=== PATIENT | male | born 1950 | race Caucasian/White ===

== ENCOUNTER 2019-12-12 09:24 | Inpatient (IN) | payer MEDICARE, OTHER ==
[~2019-12-12] VITALS: Ht 175.3 cm; Wt 110.4 kg
[2019-12-12 11:43] LABS: BASOPHILS % (AUTO) 0.4 % (0.0-5.0); HEMATOCRIT 47.6 % (42-54); LYMPHOCYTES % (AUTO) 13.2 % (21.0-51.0); MEAN CORPUSCULAR HEMOGLOBIN 28.7 pg (27.0-33.0); MEAN CORPUSCULAR HGB CONC 33.2 g/dL (32.0-36.0); MEAN CORPUSCULAR VOLUME 86.4 fL (79-99); MONOCYTES % (AUTO) 8.9 % (3.0-13.0); NEUTROPHILS % (AUTO) 76.2 % (40.0-77.0); PLATELET COUNT (AUTO) 236 K/uL (130-400); RED BLOOD CELL COUNT(AUTO) 5.51 MIL/uL (4.50-6.20); RED CELL DISTRIBUTION WIDTH 13.2 % (11.0-15.5); WHITE BLOOD COUNT (AUTO) 10.8 K/uL (4.8-10.8)
[2019-12-12 12:07] LABS: CREATININE 0.9 mg/dL (0.5-1.5); POTASSIUM 4.1 mmol/L (3.5-5.1)
[2019-12-12 12:11] LABS: ALBUMIN 3.1 g/dL (3.5-5.0); CRP QUANTITATIVE 142.7 mg/L (0.00-9.0); TOTAL PROTEIN, SERUM 7.4 g/dL (6.0-8.3)
[2019-12-12 12:53] LABS: ERYTHROCYTE SEDIMENTATION RATE 28 MM/HR (0-20)
[2019-12-12] MEDS ORDERED: ZOSYN 3.375GM+NS 50ML 50 ML IV ONE (13:31)
[2019-12-12] MEDS ORDERED: ACETAMINOPHEN-CODEINE 300/30MG TAB PO PRN (14:30)
[2019-12-12] MEDS ORDERED: VANCOMYCIN PROTOCOL PER PHARMACY IV SCH (14:30)
[2019-12-12] MEDS: CEFEPIME HCL 2 GM VIAL IVP SCH (14:30)
[2019-12-12] MEDS ORDERED: MORPHINE SULFATE 2 MG/ML 1ML SYG IVP PRN (14:30)
[2019-12-12] MEDS ORDERED: COMPOUND IV REFRIGERATED 1 EACH IVSOLN MISC PRN (15:30)
[2019-12-12] MEDS ORDERED: VANCOMYCIN 2 GM in SODIUM CHLORIDE 0.9% 500ML 500 ML IV ONE (16:00)
[2019-12-12] MEDS: INSULIN HUMULIN R 100 UNIT/ML 3ML SQ SCH ×2 (16:30→21:00)
[2019-12-12 16:48] VITALS: BP 137/73
[2019-12-12 17:38] LABS: HEMOGLOBIN A1C 6.7 % (4.0-6.0)
[2019-12-12 18:00] LABS: THYROID STIMULATING HORMONE 1.59 uIU/mL (0.36-3.74)
[2019-12-12] MEDS ORDERED: GLIP1TAB6 PO (18:32)
[2019-12-12] MEDS ORDERED: LISI-613 PO (18:32)
[2019-12-12 21:44] VITALS: BP 151/68
[2019-12-13 00:18] VITALS: BP 141/73
[2019-12-13] MEDS: CEFEPIME HCL 2 GM VIAL IVP SCH ×2 (02:42→13:41)
[2019-12-13 04:39] VITALS: BP 138/67
[2019-12-13 06:00] LABS: BASOPHILS % (AUTO) 0.4 % (0.0-5.0); EOSINOPHILS % (AUTO) 1.1 % (0.0-8.0); LYMPHOCYTES % (AUTO) 17.8 % (21.0-51.0); MEAN CORPUSCULAR HEMOGLOBIN 28.1 pg (27.0-33.0); MEAN CORPUSCULAR HGB CONC 32.8 g/dL (32.0-36.0); MEAN CORPUSCULAR VOLUME 85.7 fL (79-99); MONOCYTES % (AUTO) 10.2 % (3.0-13.0); NEUTROPHILS % (AUTO) 70.1 % (40.0-77.0); PLATELET COUNT (AUTO) 240 K/uL (130-400); RED BLOOD CELL COUNT(AUTO) 5.37 MIL/uL (4.50-6.20); RED CELL DISTRIBUTION WIDTH 13.2 % (11.0-15.5); WHITE BLOOD COUNT (AUTO) 11.4 K/uL (4.8-10.8)
[2019-12-13] MEDS: VANCOMYCIN 1.25 GM in SODIUM CHLORIDE 0.9% 250 ML IV SCH ×2 (06:05→16:54)
[2019-12-13] MEDS: INSULIN HUMULIN R 100 UNIT/ML 3ML SQ SCH ×4 (06:07→20:59)
[2019-12-13 06:35] LABS: CREATININE 0.9 mg/dL (0.5-1.5); POTASSIUM 4.3 mmol/L (3.5-5.1)
[2019-12-13 08:00] VITALS: BP 147/69
[2019-12-13] MEDS: LISINOPRIL 20 MG TABLET PO SCH (09:15)
[2019-12-13] MEDS: ENOXAPARIN SODIUM 40 MG/0.4 ML SYRINGE SQ SCH (09:15)
[2019-12-13 11:00] VITALS: BP 137/69
[2019-12-13] MEDS ORDERED: DiphenhydrAMINE HCL 50 MG/ML VIAL IVP PRN (13:30)
--- NOTE | 2019-12-13 13:44 | NUR ---
DR. CRABTREE AND DR. BINGHAM IN TO SEE PT. BRO KELLY CHANGED DRESSING TO RT. FOOT AND ENTERED ORDERS. DR. BINGHAM ENTERED LABS.
[2019-12-13 16:00] VITALS: BP 136/64
[2019-12-13] MEDS: DIPH,PERTUSS(ACELL),TET VAC/PF 0.5 ML VIAL IM SCH (16:55)
[2019-12-13] MEDS: SODIUM CHLORIDE 0.9% 1000ML 1,000 ML IV SCH ×2 (16:55→23:26)
--- NOTE | 2019-12-13 17:32 | NUR ---
D/C PLAN CM spoke to pt regarding d/c planning. Pt is ind. and lives with spouse. States spouse can assist in care if needed. Pt states if dressing changes required, he can perform himself or have spouse assist. Plan to home. No needs verbalized or identified. Plan to home. CM to f/u. Addendum: 12/13/19 at 1734 by ROSEMARY KAYE CM Amended: Links added.
--- NOTE | 2019-12-13 18:30 | NUR ---
TO RAD DEPT. NOW FOR MRI OF RT. FOOT.
--- NOTE | 2019-12-13 18:42 | NUR ---
HAS BEEN SCHEDULED FOR ANGIOGRAPHY AND INTERVENTION NEEDED.CONSENT PENDING.
[2019-12-13] MEDS ORDERED: ATORVASTATIN CALCIUM 20 MG TABLET PO SCH (21:00)
--- NOTE | 2019-12-13 21:00 | NUR ---
MEDS PATIENT STATES HE ALREADY TOOK HIS PILL BLOOD SUGAR FROM HIS OWN SUPPLY. NOTED THAT GLIPIZIDE/METFORMIN IS ON HOLD ON RECONCILIATION LIST PER MD. INFORMED PATIENT OF THIS AND INSTRUCTED TO NOT TAKE HIS OWN SUPPLY MEDICATIONS UNLESS CHECKING IN WITH NURSING STAFF. HE ACKNOWLEDGED UNDERSTANDING.
[2019-12-13 22:09] VITALS: BP 157/71
[2019-12-14] VITALS (12 sets, daily range): BP systolic 129–173; BP diastolic 63–85
[2019-12-14] MEDS: CEFEPIME HCL 2 GM VIAL IVP SCH ×2 (02:27→16:17)
[2019-12-14 05:47] LABS: HEMATOCRIT 44.8 % (42-54); MEAN CORPUSCULAR HEMOGLOBIN 28.1 pg (27.0-33.0); MEAN CORPUSCULAR HGB CONC 32.6 g/dL (32.0-36.0); MEAN CORPUSCULAR VOLUME 86.2 fL (79-99); RED BLOOD CELL COUNT(AUTO) 5.2 MIL/uL (4.50-6.20); RED CELL DISTRIBUTION WIDTH 13.2 % (11.0-15.5); WHITE BLOOD COUNT (AUTO) 10.3 K/uL (4.8-10.8)
[2019-12-14 06:03] LABS: CREATININE 0.9 mg/dL (0.5-1.5); POTASSIUM 4.1 mmol/L (3.5-5.1)
[2019-12-14 06:05] LABS: INR 0.99 (0.85-1.15); PARTIAL THROMBOPLASTIN TIME 33.5 SEC (26.3-35.5); PROTHROMBIN TIME 10.7 SEC (9.6-11.6)
[2019-12-14] MEDS: VANCOMYCIN 1.25 GM in SODIUM CHLORIDE 0.9% 250 ML IV SCH ×3 (06:22→21:52)
[2019-12-14] MEDS: INSULIN HUMULIN R 100 UNIT/ML 3ML SQ SCH ×4 (06:25→21:00)
[2019-12-14] MEDS: LISINOPRIL 20 MG TABLET PO SCH (08:58)
[2019-12-14] MEDS: ENOXAPARIN SODIUM 40 MG/0.4 ML SYRINGE SQ SCH (08:59)
[2019-12-14] MEDS: DIPH,PERTUSS(ACELL),TET VAC/PF 0.5 ML VIAL IM SCH (09:02)
[2019-12-14] MEDS ORDERED: MIDAZOLAM HCL 1 MG/ML 2ML VIAL ONE (10:59)
[2019-12-14] MEDS ORDERED: LIDOCAINE HCL 2% 20ML ONE (10:59)
[2019-12-14] MEDS ORDERED: IODIXANOL 320 MG/ML 100 ML VIAL ONE (10:59)
[2019-12-14] MEDS ORDERED: FENTANYL CITRATE PF 50 MCG/1 ML 2ML VIAL ONE (10:59)
[2019-12-14] MEDS ORDERED: NITROGLYCERIN 2 MG/VIAL VIAL IV ONE (10:59)
[2019-12-14] MEDS ORDERED: HEPARIN SODIUM 1000UNIT/ML 10ML VIAL ONE (10:59)
[2019-12-14] MEDS ORDERED: VANCOMYCIN 2 GM in SODIUM CHLORIDE 0.9% 500ML 500 ML IV SCH (12:00)
[2019-12-14] MEDS ORDERED: TICAGRELOR 90 MG TABLET ONE (13:23)
[2019-12-14] MEDS ORDERED: ASPIRIN 325MG EC TAB 325 MG TABLET.DR PO ONE (13:24)
[2019-12-14] MEDS ORDERED: SODIUM CHLORIDE 0.9% 1000ML 1,000 ML IV SCH (14:04)
--- NOTE | 2019-12-14 14:15 | NUR ---
S/P ANGIOGRAPHY LEFT FEMORAL APPROACH, DRESSING DRY INTACT, NO BLEEDING, NO SWELLING, SLIGHTLY TENDER. NO SHEAT PRESENT, AAOX3.
--- NOTE | 2019-12-14 15:00 | NUR ---
bp 160's-170s orders entered.
[2019-12-14] MEDS: SODIUM CHLORIDE 0.9% 1000ML 1,000 ML IV SCH ×2 (19:26→20:08)
[2019-12-14] MEDS ORDERED: LISINOPRIL 20 MG TABLET PO SCH (21:10)
[2019-12-14] MEDS: ATORVASTATIN CALCIUM 40 MG TABLET PO SCH (21:52)
--- NOTE | 2019-12-14 22:00 | NUR ---
VANCOMYCIN UNABLE TO GIVE 1800 SCHEDULED DOSE DUE TO LOADING DOSE WAS GIVEN LATE, SECONDARY TO PATIENT IN PROCEDURE. LOADING DOSE IS STILL RUNNING AT THIS TIME.
[2019-12-14] MEDS ORDERED: TICAGRELOR 90 MG TABLET PO SCH (23:00)
[2019-12-15] VITALS (26 sets, daily range): BP systolic 131–195; BP diastolic 52–80
[2019-12-15] MEDS: CEFEPIME HCL 2 GM VIAL IVP SCH ×2 (02:31→13:57)
[2019-12-15] MEDS: SODIUM CHLORIDE 0.9% 1000ML 1,000 ML IV SCH ×2 (04:37→15:28)
[2019-12-15] MEDS ORDERED: PHARMACY COMMUNICATION MISC SCH (04:45)
[2019-12-15] MEDS: VANCOMYCIN 1.25 GM in SODIUM CHLORIDE 0.9% 250 ML IV SCH (05:10)
[2019-12-15 05:40] LABS: HEMATOCRIT 41.7 % (42-54); MEAN CORPUSCULAR HEMOGLOBIN 28.6 pg (27.0-33.0); MEAN CORPUSCULAR HGB CONC 33.3 g/dL (32.0-36.0); MEAN CORPUSCULAR VOLUME 85.8 fL (79-99); RED BLOOD CELL COUNT(AUTO) 4.86 MIL/uL (4.50-6.20); RED CELL DISTRIBUTION WIDTH 12.9 % (11.0-15.5); WHITE BLOOD COUNT (AUTO) 8.3 K/uL (4.8-10.8)
[2019-12-15] MEDS: INSULIN HUMULIN R 100 UNIT/ML 3ML SQ SCH ×4 (05:50→20:28)
[2019-12-15 06:00] LABS: CREATININE 0.8 mg/dL (0.5-1.5); POTASSIUM 4.2 mmol/L (3.5-5.1)
[2019-12-15] MEDS: ASPIRIN 81MG TAB.CHEW PO SCH (09:00)
[2019-12-15] MEDS: LISINOPRIL 20 MG TABLET PO SCH (09:00)
[2019-12-15] MEDS: CLOPIDOGREL BISULFATE 75 MG TAB PO SCH (09:00)
[2019-12-15] MEDS: DIPH,PERTUSS(ACELL),TET VAC/PF 0.5 ML VIAL IM SCH (11:15)
--- NOTE | 2019-12-15 14:21 | NUR ---
CONSULT: SHIREEN PONCE PANTOGRAPH WATCHER MADE AWARE OF NPO STATUS 12/15/19 AT 0:700, ONE EAST TIMORESE TOAST AND VERY LITTLE OATMEAL. OK TO PROCEED WITH SURGERY.
[2019-12-15] MEDS ORDERED: BUPIVACAINE/PF 0.5% 30ML VIAL ONE (15:00)
[2019-12-15] MEDS ORDERED: LIDOCAINE HCL 1% 20 ML VIAL ONE (15:00)
[2019-12-15] MEDS ORDERED: PROPOFOL 10 MG/ML 20ML VIAL IV ONE (15:07)
[2019-12-15] MEDS ORDERED: ONDANSETRON HCL 4 MG/2 ML VIAL ONE ×2 (15:07→18:01)
[2019-12-15] MEDS ORDERED: MIDAZOLAM HCL 1 MG/ML 2ML VIAL ONE (15:07)
[2019-12-15] MEDS ORDERED: LIDOCAINE PF 2% 5ML ABBOJECT ONE (15:07)
[2019-12-15] MEDS ORDERED: DEXAMETHASONE SOD PHOSPHATE 10MG/ML 1ML VIAL ONE (15:07)
[2019-12-15] MEDS ORDERED: FENTANYL CITRATE PF 50 MCG/1 ML 2ML VIAL ONE (15:09)
[2019-12-15] MEDS: ATORVASTATIN CALCIUM 40 MG TABLET PO SCH (20:22)
[2019-12-15] MEDS: HYDROMORPHONE HCL 0.5 MG/0.5 ML ML IVP PRN ×2 (20:24→23:28)
[2019-12-15] MEDS: VANCOMYCIN 1.5 GM in SODIUM CHLORIDE 0.9% 250 ML IV SCH (22:19)
[2019-12-15] MEDS ORDERED: HYDRALAZINE HCL 20 MG/ML VIAL ONE (23:07)
[2019-12-15] MEDS ORDERED: HYDRALAZINE HCL 20 MG/ML VIAL IV PRN (23:15)
[2019-12-16] MEDS: CEFEPIME HCL 2 GM VIAL IVP SCH ×2 (01:28→15:22)
[2019-12-16] MEDS: SODIUM CHLORIDE 0.9% 1000ML 1,000 ML IV SCH ×3 (01:28→21:26)
[2019-12-16 03:52] VITALS: BP 142/46
[2019-12-16] MEDS: INSULIN HUMULIN R 100 UNIT/ML 3ML SQ SCH ×4 (05:32→21:00)
--- NOTE | 2019-12-16 08:00 | NUR ---
PT AAOX 3 REVIEW PLAN OF CARE, DR CRABTREE CHANGED HIS RTFOOT DRSG EARLY IN AM. RT FOOT DRSG DRY AND CLEAN . DENIES ANY PAIN . AND CALL LIGHT IN REACH. .
[2019-12-16] MEDS: ASPIRIN 81MG TAB.CHEW PO SCH (09:01)
[2019-12-16] MEDS: LISINOPRIL 20 MG TABLET PO SCH (09:01)
[2019-12-16] MEDS: CLOPIDOGREL BISULFATE 75 MG TAB PO SCH (09:02)
[2019-12-16] MEDS: VANCOMYCIN 1.5 GM in SODIUM CHLORIDE 0.9% 250 ML IV SCH ×2 (09:03→23:11)
[2019-12-16 10:00] VITALS: BP 170/78
[2019-12-16] MEDS: DIPH,PERTUSS(ACELL),TET VAC/PF 0.5 ML VIAL IM SCH (11:15)
[2019-12-16 12:21] VITALS: BP 162/72
--- NOTE | 2019-12-16 16:53 | NUR ---
DISPO_ HOME WITH [facility], ACCEPTANCE PENDING, WILL AMEND DISPO IF ANOTHER AGENCY IS CHOSEN Addendum: 12/16/19 at 1654 by DONATO GALVAN RN CM Amended: Links added.
[2019-12-16 17:27] VITALS: BP 139/70
[2019-12-16 20:00] VITALS: BP 145/58
[2019-12-16] MEDS: ATORVASTATIN CALCIUM 40 MG TABLET PO SCH (22:59)
[2019-12-16 23:49] VITALS: BP 124/63
[2019-12-17] MEDS: CEFEPIME HCL 2 GM VIAL IVP SCH ×2 (02:24→14:30)
[2019-12-17 03:55] VITALS: BP 125/50
[2019-12-17 04:55] LABS: BASOPHILS % (AUTO) 0.3 % (0.0-5.0); EOSINOPHILS % (AUTO) 1.1 % (0.0-8.0); LYMPHOCYTES % (AUTO) 14.7 % (21.0-51.0); MEAN CORPUSCULAR HEMOGLOBIN 28.8 pg (27.0-33.0); MEAN CORPUSCULAR HGB CONC 33.5 g/dL (32.0-36.0); MEAN CORPUSCULAR VOLUME 85.8 fL (79-99); MONOCYTES % (AUTO) 8.6 % (3.0-13.0); PLATELET COUNT (AUTO) 223 K/uL (130-400); RED BLOOD CELL COUNT(AUTO) 4.66 MIL/uL (4.50-6.20); RED CELL DISTRIBUTION WIDTH 13.2 % (11.0-15.5); WHITE BLOOD COUNT (AUTO) 8.8 K/uL (4.8-10.8)
[2019-12-17 05:05] LABS: CREATININE 0.7 mg/dL (0.5-1.5); POTASSIUM 4.2 mmol/L (3.5-5.1)
[2019-12-17] MEDS: INSULIN HUMULIN R 100 UNIT/ML 3ML SQ SCH ×2 (06:05→11:30)
--- NOTE | 2019-12-17 06:23 | NUR ---
DR CUEVAS WENT TO PT'S ROOM AND CHANGED PT'S RT. BIG TOE DRESSING.
[2019-12-17] MEDS: SODIUM CHLORIDE 0.9% 1000ML 1,000 ML IV SCH (06:35)
--- NOTE | 2019-12-17 06:49 | NUR ---
REPORT GIVEN TO ALECIA LEE RN.
[2019-12-17] MEDS ORDERED: GLIPIZIDE XL 10MG TAB PO SCH (08:00)
[2019-12-17] MEDS ORDERED: METFORMIN HCL 500 MG TAB.SR.24H PO SCH (08:00)
--- NOTE | 2019-12-17 08:00 | NUR ---
PT AAOX 3REVIEW CALL LGHT, DENIES ANY PAIN. RT FOOT DRSG DRY AND CLEAN, DR REARDON WAS HERE IN EARLY AM .WITH A RT FOOT DRSG CHANGED FALL RISK REVIEW
[2019-12-17 08:07] VITALS: BP 163/75
[2019-12-17] MEDS: ASPIRIN 81MG TAB.CHEW PO SCH (08:13)
[2019-12-17] MEDS: LISINOPRIL 20 MG TABLET PO SCH (08:13)
[2019-12-17] MEDS: CLOPIDOGREL BISULFATE 75 MG TAB PO SCH (08:15)
[2019-12-17] MEDS: VANCOMYCIN 1.5 GM in SODIUM CHLORIDE 0.9% 250 ML IV SCH (08:16)
--- NOTE | 2019-12-17 10:11 | NUR ---
ACCEPTED AT [facility], FOR DC TODAY Addendum: 12/17/19 at 1011 by DONATO GALVAN RN CM Amended: Links added.
[2019-12-17 10:49] VITALS: BP 143/63
[2019-12-17] MEDS ORDERED: ATOR40TA69 PO (11:07)
[2019-12-17] MEDS ORDERED: GLIP10TA PO (11:07)
[2019-12-17] MEDS ORDERED: CLOP75TA14 PO (11:07)
[2019-12-17] MEDS ORDERED: METF500T3 PO (11:07)
[2019-12-17] MEDS ORDERED: ASPI-1005 PO (11:07)
[2019-12-17] MEDS ORDERED: PANT40TA PO (11:07)
[2019-12-17] MEDS ORDERED: LISI-613 PO (11:07)
[2019-12-17] MEDS: DIPH,PERTUSS(ACELL),TET VAC/PF 0.5 ML VIAL IM SCH (11:15)
--- NOTE | 2019-12-17 13:30 | NUR ---
HOME HEALTH , STAFF NURSE , CALLED FOR REPORT OF MR. APONET. DISCHARGE RT FOOT .CARE , REVIEW QUESTIONS .
--- NOTE | 2019-12-17 15:15 | NUR ---
DISCHARGE SUMMARY REVIEW WITH PT. STATUS, OF DISCHARGE CARE, REVIEW FOLLOWUP WITH DR. CRABTREE ,AND DR LLOYD , AND PRIVATE DR. PT DISCHARGE , WITH EDUC ATION OF DIABETIC AND CARE TO HIS RT FOOT. DRSG DRY AND CLEAN , DR REARDON CHANGED HIS DRSG THIS AM. AMPUTATION SITE , TO HIS RT GREAT TOE. PICTURES TAKEN BEFORE THE AMPUTATIONS PT . HAS A COVER SHOE FOR RT FOOT SUPPORT DENIES ANY PAIN, REVIEW DR. CRABTREE ORDERS . SL TO HIS LT HAND DC, WITH NO REDNESS NOTED .SITE CARE SM DRSG APPLICATION ON . REVIEW ANTIBOTICS . TO COMPLETE AND SIDE EFFECTS , . AGREEABLE TO INFORMATION ...
== END 2019-12-17 15:22 | disposition home health service (06) | DRG 271 ==
LOC: EDH 09:24 → EDHIP 14:23 → 3CH 16:45
PROVIDERS: ADMIT Internal Medicine; ATTEND Internal Medicine
PROC: 0LBV0ZZ Excision of Right Foot Tendon, Open Approach (ICD-10-PCS; 2019-12-12)
PROC: 0HBRXZZ Excision of Toe Nail, External Approach (ICD-10-PCS; 2019-12-12)
PROC: 0HBRXZZ Excision of Toe Nail, External Approach (ICD-10-PCS; 2019-12-12)
PROC: 0HBRXZZ Excision of Toe Nail, External Approach (ICD-10-PCS; 2019-12-12)
PROC: 0HBRXZZ Excision of Toe Nail, External Approach (ICD-10-PCS; 2019-12-12)
PROC: 0HBRXZZ Excision of Toe Nail, External Approach (ICD-10-PCS; 2019-12-12)
PROC: 0HBRXZZ Excision of Toe Nail, External Approach (ICD-10-PCS; 2019-12-12)
PROC: 0HBRXZZ Excision of Toe Nail, External Approach (ICD-10-PCS; 2019-12-12)
PROC: 0HBRXZZ Excision of Toe Nail, External Approach (ICD-10-PCS; 2019-12-12)
PROC: 0HBRXZZ Excision of Toe Nail, External Approach (ICD-10-PCS; 2019-12-12)
PROC: 0HBRXZZ Excision of Toe Nail, External Approach (ICD-10-PCS; 2019-12-12)
PROC: 04CR3ZZ Extirpation of Matter from Right Posterior Tibial Artery, Percutaneous Approach (ICD-10-PCS; 2019-12-14)
PROC: 04CM3ZZ Extirpation of Matter from Right Popliteal Artery, Percutaneous Approach (ICD-10-PCS; 2019-12-14)
PROC: 047K3Z1 Dilation of Right Femoral Artery using Drug-Coated Balloon, Percutaneous Approach (ICD-10-PCS; 2019-12-14)
PROC: 047M3Z1 Dilation of Right Popliteal Artery using Drug-Coated Balloon, Percutaneous Approach (ICD-10-PCS; 2019-12-14)
PROC: B410YZZ Fluoroscopy of Abdominal Aorta using Other Contrast (ICD-10-PCS; 2019-12-14)
PROC: B41FYZZ Fluoroscopy of Right Lower Extremity Arteries using Other Contrast (ICD-10-PCS; 2019-12-14)
PROC: 04CK3ZZ Extirpation of Matter from Right Femoral Artery, Percutaneous Approach (ICD-10-PCS; 2019-12-14)
PROC: 047R3ZZ Dilation of Right Posterior Tibial Artery, Percutaneous Approach (ICD-10-PCS; 2019-12-14)
PROC: 0Y6P0Z3 Detachment at Right 1st Toe, Low, Open Approach (ICD-10-PCS; principal; 2019-12-15 14:50)
DX: E11.52 Type 2 diabetes mellitus with diabetic peripheral angiopathy with gangrene (principal); L02.611 Cutaneous abscess of right foot; I96 Gangrene, not elsewhere classified; I70.92 Chronic total occlusion of artery of the extremities; M86.8X8 Other osteomyelitis, other site; E11.69 Type 2 diabetes mellitus with other specified complication; I10 Essential (primary) hypertension; L97.519 Non-pressure chronic ulcer of other part of right foot with unspecified severity; E11.42 Type 2 diabetes mellitus with diabetic polyneuropathy; S91.131A Puncture wound without foreign body of right great toe without damage to nail, initial encounter; E11.622 Type 2 diabetes mellitus with other skin ulcer; B35.1 Tinea unguium; E78.00 Pure hypercholesterolemia, unspecified; E78.5 Hyperlipidemia, unspecified; L60.2 Onychogryphosis; Z83.3 Family history of diabetes mellitus; E66.01 Morbid (severe) obesity due to excess calories; Z82.49 Family history of ischemic heart disease and other diseases of the circulatory system; I70.201 Unspecified atherosclerosis of native arteries of extremities, right leg; Z68.35 Body mass index [BMI] 35.0-35.9, adult
CPT/HCPCS: 36415; 37225; 37229; 73660; 73718; 75630; 75710; 80048; 80053; 80061; 80202; 82948; 83036; 83605; 84443; 85025; 85027; 85347; 85610; 85651; 85730; 86140; 87070; 87076; 87205; 88304; 88311; 90715; 93925; 97039; 99156; 99157; C1760; C1769; C1884; C1893; C1894; G0378; J0360; J0692; J1100; J1170; J1200; J1644; J1650; J1815; J2001; J2250; J2405; J2543; J2704; J3010; J3370; J3490; J7030; J7040; J7050; Q9967

== ENCOUNTER → 2023-05-28 | Outpatient (CLI) | payer MEDICARE ==
[~2023-05-28] MED LIST: ASPI-1005 PO; ATOR40TA69 PO; CLOP-31 PO; GLIP10TA PO; LISI20TA24 PO; METF500T3 PO; PANT40TA PO
== END | disposition home or self-care (01) ==
LOC: RAH 07:43
PROVIDERS: ATTEND Internal Medicine
DX: Z87.891 Personal history of nicotine dependence (principal)
CPT/HCPCS: 76775

== ENCOUNTER → 2023-10-28 | Outpatient (CLI) | payer OTHER | END | disposition home or self-care (01) | LOC: RAH 10:59 | PROVIDERS: ATTEND Internal Medicine Cardiovascular Disease | DX: Z13.6 Encounter for screening for cardiovascular disorders (principal) | CPT/HCPCS: 75571 ==

== ENCOUNTER → 2023-11-29 | Outpatient (CLI) | payer MEDICARE ==
[2023-11-29] MEDS: REGADENOSON 0.4 MG/5 ML PF SYG IVP ONE (14:41)
== END | disposition home or self-care (01) ==
LOC: SHCH 08:11
PROVIDERS: ATTEND Internal Medicine Cardiovascular Disease
DX: I25.10 Atherosclerotic heart disease of native coronary artery without angina pectoris (principal)
CPT/HCPCS: 78452; 96374; 93017; J2785; A9500 ×2

== ENCOUNTER → 2023-12-02 | Outpatient (CLI) | payer MEDICARE | END | disposition home or self-care (01) | LOC: SHCH 13:36 | PROVIDERS: ATTEND Internal Medicine Cardiovascular Disease | DX: I70.203 Unspecified atherosclerosis of native arteries of extremities, bilateral legs (principal); I87.2 Venous insufficiency (chronic) (peripheral); I87.1 Compression of vein | CPT/HCPCS: 93925; 93970 ==

== ENCOUNTER 2023-12-11 05:54 | Day surgery (SDC) | payer MEDICARE ==
[2023-12-10 11:20] LABS: BASOPHILS # (AUTO) 0.05 K/uL (0.00-0.20); BASOPHILS % (AUTO) 0.6 % (0.0-5.0); EOSINOPHILS # (AUTO) 0.24 K/uL (0.00-0.70); HEMATOCRIT 46.4 % (42-54); IMMATURE GRANULOCYTE ABSOLUTE 0.04 K/uL (0-1); LYMPHOCYTES # (AUTO) 1.6 K/uL (1.0-4.8); LYMPHOCYTES % (AUTO) 19.8 % (21.0-51.0); MEAN CORPUSCULAR HEMOGLOBIN 28.4 pg (27.0-33.0); MEAN CORPUSCULAR HGB CONC 33.4 g/dL (32.0-36.0); MEAN CORPUSCULAR VOLUME 85.1 fL (79-99); MONOCYTES # (AUTO) 0.6 K/uL (0.1-1.0); MONOCYTES % (AUTO) 7.7 % (3.0-13.0); NEUTROPHILS # (AUTO) 5.4 K/uL (1.8-7.7); NEUTROPHILS % (AUTO) 68.4 % (40.0-77.0); PLATELET COUNT (AUTO) 207 K/uL (130-400); RED BLOOD CELL COUNT(AUTO) 5.45 MIL/uL (4.50-6.20); RED CELL DISTRIBUTION WIDTH 14.2 % (11.0-15.5)
[2023-12-10 11:21] LABS: APPEARANCE,URINE CLEAR (CLEAR); BILIRUBIN,URINE NEGATIVE (NEGATIVE); COLOR,URINE LIGHT-YELLOW (YELLOW); GLUCOSE, URINE (UA) NEGATIVE (NEGATIVE); KETONES,URINE NEGATIVE (NEGATIVE); LEUKOCYTE ESTERASE ,URINE 75 Leu/uL (NEGATIVE); NITRATE,URINE NEGATIVE (NEGATIVE); OCCULT BLOOD,URINE NEGATIVE (NEGATIVE); PROTEIN,URINE 10 mg/dL (NEGATIVE); UROBILINOGEN,URINE 0.2 mg/dL (0.2-1.0)
[2023-12-10 11:22] LABS: CREATININE 0.8 mg/dL (0.5-1.3); POTASSIUM 4.4 mmol/L (3.5-5.1)
[2023-12-10 11:25] VITALS: BP 146/80; PULSE 74; RESP 18
[2023-12-10 11:26] LABS: INR 0.95 (0.85-1.15); PROTHROMBIN TIME 11.3 SEC (9.6-11.6)
[2023-12-10 11:27] LABS: PARTIAL THROMBOPLASTIN TIME 27.9 SEC (26.3-35.5)
[2023-12-10 11:29] LABS: ADD UA MICROSCOPIC YES
[2023-12-10 11:30] LABS: MUCUS,URINE RARE LPF (None Seen); RBC,URINE 0-1 /HPF (0-1)
[2023-12-10 11:58] LABS: B-TYPE NATRIURETIC PEPTIDE 8 pg/mL (0-100)
[2023-12-11] VITALS (10 sets, daily range): BP systolic 113–162; BP diastolic 58–69; PULSE 56–78; RESP 9–18
[~2023-12-11] VITALS: Ht 175.3 cm; Wt 113.9 kg
[~2023-12-11 05:54] MED LIST changes: +DAPA10TA PO; -GLIP10TA PO; +GLIP5TAB15 PO; -LISI20TA24 PO; +LISI40TA9 PO; +METF-526 PO; -METF500T3 PO; -PANT40TA PO
[2023-12-11] MEDS: 0.9%NACL 1000ML 1,000 ML IV ONE (06:43)
[2023-12-11] MEDS ORDERED: DULA0.75 SQ (06:58)
[2023-12-11] MEDS ORDERED: GLIP1TAB6 PO (06:58)
[2023-12-11] MEDS ORDERED: REPA1TAB5 PO (06:58)
[2023-12-11] MEDS ORDERED: CHOL500045 PO (06:58)
[2023-12-11] MEDS ORDERED: HEPARIN 10,000 UNIT/10ML (1,000 UNIT/ML) VIAL ONE (07:24)
[2023-12-11] MEDS ORDERED: LIDOCAINE HCL 400MG/20ML VIAL ONE (07:24)
[2023-12-11] MEDS ORDERED: IODIXANOL 320 MG/ML 100 ML VIAL ONE (07:24)
[2023-12-11] MEDS ORDERED: NITROGLYCERIN 50MG VIAL ONE (07:25)
[2023-12-11] MEDS ORDERED: FENTANYL CITRATE PF 50 MCG/1 ML 2ML VIAL ONE (07:30)
[2023-12-11] MEDS ORDERED: MIDAZOLAM HCL 1 MG/ML 2ML VIAL ONE (07:31)
[2023-12-11] MEDS ORDERED: DEXTROSE 50%-WATER 50 ML DISP.SYRIN IV PRN (08:30)
[2023-12-11] MEDS ORDERED: GLUCAGON 1MG KIT 1 MG ML IM PRN (08:30)
[2023-12-11] MEDS: 0.9%NACL 1000ML 1,000 ML IV SCH (09:03)
[2023-12-11] MEDS ORDERED: INSULIN HUMULIN R 100 UNIT/ML 3ML SQ SCH (11:30)
== END 2023-12-11 11:25 | disposition home or self-care (01) ==
LOC: DAH 05:54
PROVIDERS: ATTEND Internal Medicine Cardiovascular Disease
DX: I87.1 Compression of vein (principal); I87.2 Venous insufficiency (chronic) (peripheral); E11.51 Type 2 diabetes mellitus with diabetic peripheral angiopathy without gangrene; I10 Essential (primary) hypertension; E78.5 Hyperlipidemia, unspecified; E11.9 Type 2 diabetes mellitus without complications; E66.9 Obesity, unspecified; Z68.37 Body mass index [BMI] 37.0-37.9, adult; Z82.49 Family history of ischemic heart disease and other diseases of the circulatory system; Z79.82 Long term (current) use of aspirin; Z79.84 Long term (current) use of oral hypoglycemic drugs; Z72.89 Other problems related to lifestyle; Z87.891 Personal history of nicotine dependence; Z79.899 Other long term (current) drug therapy; Z98.890 Other specified postprocedural states
CPT/HCPCS: 80048; 83880; 85025; 85610; 85730; 87086; 81001; 36415; 37238; 36012; 75822; 37252; 37253 ×5; 82948 ×2; C1876; C1769; C1894 ×3; C1760 ×2; C1753; J3010; J3490 ×2; J7030; J2250; J1644; Q9967; A4215; A4222; A4221; A4663; A4216; A4606; A4223 ×3; 96360; 96361; 99156; 99157

== ENCOUNTER → 2024-02-03 | Outpatient (CLI) | payer MEDICARE ==
[~2024-02-03] MED LIST changes: +CHOL500045 PO; +DULA0.75 SQ; +GLIP1TAB6 PO; -GLIP5TAB15 PO; -METF-526 PO; +REPA1TAB5 PO
== END | disposition home or self-care (01) ==
LOC: SHCH 09:40
PROVIDERS: ATTEND Internal Medicine Cardiovascular Disease
DX: I87.2 Venous insufficiency (chronic) (peripheral) (principal)
CPT/HCPCS: 93971

== ENCOUNTER → 2024-06-22 | Outpatient (CLI) | payer MEDICARE ==
[2024-06-22 16:51] LABS: CREATININE 0.8 mg/dL (0.5-1.3); POTASSIUM 4.4 mmol/L (3.5-5.1)
== END | disposition home or self-care (01) ==
LOC: LAB 13:52
PROVIDERS: ATTEND Internal Medicine Cardiovascular Disease
DX: R94.31 Abnormal electrocardiogram [ECG] [EKG] (principal)
CPT/HCPCS: 36415; 80048

== ENCOUNTER → 2024-06-30 | Outpatient (CLI) | payer MEDICARE ==
[~2024-06-30] MED LIST changes: +IOHEXOL-350 75 ML VIAL IV ONE
--- NOTE | 2024-06-30 11:39 | HMCIMG ---
CT CARDIAC ANGIO W/CONT. CCTA HISTORY: Abnormal result of other cardiovascular function study COMPARISON: None TECHNIQUE: Multiple sequential axial images of the chest were obtained along with the CT angiogram of the chest study. Patient was given 125 cc of Omnipaque through intravenous route. FINDINGS: There is no evidence of pulmonary nodule or parenchymal disease. No pleural effusion or pericardial effusion is seen. There is no evidence of pneumothorax. There are normal size mediastinal and hilar lymph nodes. Coronary arterial calcifications are seen. The heart is borderline enlarged. Degenerative changes of the thoracolumbar spine are present. IMPRESSION: 1. No evidence of pulmonary nodule or effusion is seen. Please see CT angiogram report of coronary arteries.
--- NOTE | 2024-07-01 17:34 | CARDIOLOGY ---
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 A dedicated, limited window, coronary imaging protocol was used, with single breath-hold, retrospective ECG gating, and automated arrhythmia rejection. 100 cc of low osmolar contrast agent: Omnipaque 350 was delivered via a 18-gauge IV catheter in the right antecubital fossa, using a power injector and followed by 60 cc of normal saline bolus as a chaser. Collimated images were reformatted at 0.5 mm intervals, and sent to an offline independent workstation for interpretation, using 3D anatomic reconstructions: Curved multiplanar reconstructions, maximum intensity projections, and multiplanar imaging. No metoprolol was administered prior to scanning due to low baseline heart rate. No SL nitroglycerin was given. CORONARY ARTERY DESCRIPTIONS: The coronary arteries arise in normal position. Left main coronary artery: Normal caliber and short vessel that bifurcates into the LAD and LCx. No stenosis. Left anterior descending coronary artery: Normal caliber vessel and gives rise to diagonal and septal branches. There is mixed calcified and noncalcified plaque in the proximal LAD with 90% stenosis. There is mixed calcified and noncalcified plaque in the mid LAD at the D1 takeoff with 50% stenosis. The D1 is subtotally occluded. The distal LAD is diffusely diseased with moderate stenosis. Left circumflex coronary artery: Normal caliber, dominant and gives rise to a large OM branch. There is calcified plaque in the proximal LCx with 20% stenosis. Right coronary artery: Small, nondominant vessel. No stenosis. CAD-RADs: 4A, severe stenosis. Recommend left heart catheterization. Thoracic Aorta: Normal diameter. Ebony Ahmadi MD Cardiovascular Disease [facility] EBONY AHMADI MD Jul 01, 2024 17:34
== END | disposition home or self-care (01) ==
LOC: RAH 08:29
PROVIDERS: ATTEND Internal Medicine Cardiovascular Disease
DX: I25.10 Atherosclerotic heart disease of native coronary artery without angina pectoris (principal); R94.39 Abnormal result of other cardiovascular function study; M47.815 Spondylosis without myelopathy or radiculopathy, thoracolumbar region
CPT/HCPCS: 75574; Q9967

== ENCOUNTER → 2024-07-16 | Outpatient (CLI) | payer MEDICARE ==
[~2024-07-16] MED LIST changes: -IOHEXOL-350 75 ML VIAL IV ONE
--- NOTE | 2024-07-16 15:50 | HMCIMG ---
MR SPINAL CANAL, LUMBAR WO CON HISTORY: Radiculopathy COMPARISON: None TECHNIQUE: MRI of the lumbar spine was performed utilizing multiple pulse sequences in axial , coronal and sagittal plane. Patient was not given contrast through intravenous route. FINDINGS: No abnormal signal intensity is seen of the visualized bony structure. No loss of vertebral height is seen. There is straightening of normal lumbar curvature which may be related to muscle spasm or positioning. Degenerative disc signals are present at all lumbar spine levels. Visualized distal conus is unremarkable. There is left renal cyst measuring 3 cm. At the L1-L2 level, there is spondylotic disc with bilateral ligamentum flavum hypertrophy causing anterior thecal sac compression with bilateral lateral recess stenosis and minimal bilateral neural foraminal stenosis. The thecal sac measures approximately 8.9 mm in its anterior posterior dimension. At the L2-L3 level, there is spondylotic disc with annular disc bulge and bilateral ligamentum flavum hypertrophy causing anterior thecal sac compression with bilateral lateral recess stenosis and bilateral neural foraminal stenosis. The thecal sac measures approximately 5.7 mm in its anterior posterior dimension. At the L3-4 level, there is spondylotic disc with annular disc bulge and bilateral ligamentum flavum hypertrophy causing anterior thecal sac compression with bilateral lateral recess stenosis and bilateral neural foraminal stenosis. The thecal sac measures approximately 3.6 mm in its anterior posterior dimension. At the L4-5 level, there is spondylotic disc with annular disc bulge and bilateral ligamentum flavum hypertrophy causing anterior thecal sac compression with bilateral lateral recess stenosis and bilateral neural foraminal stenosis. The thecal sac measures approximately 3.9 mm in its anterior posterior dimension. At the L5-S1 level, there is spondylotic disc with annular disc bulge and bilateral ligamentum flavum hypertrophy causing anterior thecal sac compression with bilateral lateral recess stenosis and bilateral neural foraminal stenosis. The thecal sac measures approximately 7.2 mm in its anterior posterior dimension. IMPRESSION: 1. 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 There may be nerve root encroachment at these levels.
== END | disposition home or self-care (01) ==
LOC: RAH 12:26
PROVIDERS: ATTEND Internal Medicine
DX: M48.56XA Collapsed vertebra, not elsewhere classified, lumbar region, initial encounter for fracture (principal); M47.27 Other spondylosis with radiculopathy, lumbosacral region; M46.07 Spinal enthesopathy, lumbosacral region; M48.07 Spinal stenosis, lumbosacral region; N28.1 Cyst of kidney, acquired
CPT/HCPCS: 72148

== ENCOUNTER 2024-08-03 05:44 | Day surgery (SDC) | payer MEDICARE ==
[2024-07-30 09:29] VITALS: PULSE 61; RESP 18; TEMP 97
--- NOTE | 2024-07-30 09:34 | EKG ---
[facility] Test Date: 2024-07-30 Test Time: 10:20:09 Pat Name: BETSY APONTE Department: [facility] Room: Gender: M Range Examiner: [id number] : 1950 Requested By: Sourav GREEN Order Number: [id number] Reading MD: Bony Nickerson Measurements Intervals [place] Rate: 67 P: 8 AR: 149 QRS: -3 QRSD: 102 T: 64 QT: 380 QTc: 403 Interpretive Statements Sinus rhythm Supraventricular bigeminy No previous ECG available for comparison Electronically Signed On 07-31-2024 17:37:27 MOLDER SWEEP by Bony Nickerson Please click the below link to view image of tracing.
[2024-07-30 09:59] LABS: BASOPHILS # (AUTO) 0.05 K/uL (0.00-0.20); BASOPHILS % (AUTO) 0.7 % (0.0-5.0); EOSINOPHILS # (AUTO) 0.14 K/uL (0.00-0.70); EOSINOPHILS % (AUTO) 2.1 % (0.0-8.0); HEMATOCRIT 48.2 % (42-54); IMMATURE GRANULOCYTE ABSOLUTE 0.02 K/uL (0-1); LYMPHOCYTES # (AUTO) 1.4 K/uL (1.0-4.8); LYMPHOCYTES % (AUTO) 20.5 % (21.0-51.0); MEAN CORPUSCULAR HEMOGLOBIN 28.6 pg (27.0-33.0); MONOCYTES # (AUTO) 0.6 K/uL (0.1-1.0); MONOCYTES % (AUTO) 9.1 % (3.0-13.0); NEUTROPHILS # (AUTO) 4.6 K/uL (1.8-7.7); NEUTROPHILS % (AUTO) 67.3 % (40.0-77.0); PLATELET COUNT (AUTO) 187 K/uL (130-400); RED BLOOD CELL COUNT(AUTO) 5.74 MIL/uL (4.50-6.20); RED CELL DISTRIBUTION WIDTH 13.4 % (11.0-15.5); WHITE BLOOD COUNT (AUTO) 6.8 K/uL (4.8-10.8)
[2024-07-30 10:06] LABS: CREATININE 0.7 mg/dL (0.5-1.3); POTASSIUM 4.3 mmol/L (3.5-5.1)
[2024-07-30 10:07] LABS: INR 0.99 (0.85-1.15); PROTHROMBIN TIME 11.1 SEC (9.6-11.6)
[2024-07-30 10:08] LABS: PARTIAL THROMBOPLASTIN TIME 28.8 SEC (26.3-35.5)
[2024-07-30 10:26] LABS: B-TYPE NATRIURETIC PEPTIDE 27 pg/mL (0-100)
[2024-07-30 10:26] LABS: APPEARANCE,URINE CLEAR (CLEAR); BILIRUBIN,URINE NEGATIVE (NEGATIVE); COLOR,URINE LIGHT-YELLOW (YELLOW); GLUCOSE, URINE (UA) 500 mg/dL (NEGATIVE); KETONES,URINE NEGATIVE (NEGATIVE); LEUKOCYTE ESTERASE ,URINE NEGATIVE Leu/uL (NEGATIVE); NITRATE,URINE NEGATIVE (NEGATIVE); OCCULT BLOOD,URINE NEGATIVE (NEGATIVE); PROTEIN,URINE 50 mg/dL (NEGATIVE); UROBILINOGEN,URINE 0.2 mg/dL (0.2-1.0)
[2024-07-30 10:27] LABS: ADD UA MICROSCOPIC YES; RBC,URINE 0-1 /HPF (0-1); WBC,URINE 0-1 /HPF (0-1)
--- NOTE | 2024-07-30 10:30 | HMCIMG ---
Exam Type: CHEST 1VW Clinical Information: PREOP Comparison: None Findings: The lungs are clear of infiltrates. The heart is normal in size. The bony and soft tissue structures of the chest are unremarkable. Impression: Clear lungs.
[2024-08-03] VITALS (9 sets, daily range): BP systolic 121–156; BP diastolic 59–78; PULSE 50–75; RESP 15–23; TEMP 97–97.8
[~2024-08-03] VITALS: Ht 175.3 cm; Wt 114.5 kg
[~2024-08-03 05:44] MED LIST changes: -CHOL500045 PO; -DAPA10TA PO; -DULA0.75 SQ; -LISI40TA9 PO; +METO-391 PO; -REPA1TAB5 PO
[2024-08-03] MEDS: 0.9%NACL 1000ML 1,000 ML IV SCH (07:00)
[2024-08-03] MEDS ORDERED: MEPERIDINE-PF 50 MG/ML SYG ONE (07:12)
[2024-08-03] MEDS ORDERED: LIDOCAINE HCL 400MG/20ML VIAL ONE (07:12)
[2024-08-03] MEDS ORDERED: MIDAZOLAM HCL 1 MG/ML 2ML VIAL ONE ×2 (07:12→07:45)
[2024-08-03] MEDS ORDERED: HEParin-NS 1,000 UNIT/500 ML 1,000 ML IV ONE (07:13)
[2024-08-03] MEDS ORDERED: NITROGLYCERIN 50MG VIAL ONE (07:13)
[2024-08-03] MEDS ORDERED: HEParin 10,000 UNIT/10ML (1,000 UNIT/ML) VIAL ONE (07:13)
[2024-08-03] MEDS ORDERED: niCARDIpine 25MG INJ IV ONE (07:13)
[2024-08-03] MEDS ORDERED: IOHEXOL-350 75 ML VIAL IV ONE ×2 (07:14→08:37)
[2024-08-03] MEDS ORDERED: SODIUM BICARB 50MEQ 50ML VIAL 50 ML ONE (07:21)
[2024-08-03] MEDS ORDERED: ASPIRIN 81MG CHEW TAB ONE (07:35)
[2024-08-03] MEDS ORDERED: 0.9%NACL 1000ML 1,000 ML IV SCH (09:30)
--- NOTE | 2024-08-03 10:00 | CCATH ---
PROCEDURES: * Left heart catheterization. * Selective diagnostic right and left coronary arteriogram. * Balloon angioplasty and stent placement of the ostial, proximal, and mid LAD. * Balloon angioplasty and stent placement in the obtuse marginal 2, superior branch. INDICATIONS: * Severe peripheral vascular disease. * Severe coronary artery disease. * Markedly abnormal coronary CTA. * Abnormal Lexiscan Cardiolite. COMPLICATIONS: None. TOTAL CONTRAST: 165 mL. APPROACH: Right radial approach. DESCRIPTION OF PROCEDURE: The patient was taken to the cardiac catheterization lab after the appropriate operative consents were signed. He was prepped and draped in the usual fashion. After conscious sedation was administered for 1 hour, the patient's right radial artery was accessed after administration of 2% Xylocaine without epinephrine. A radial slender sheath 6-Sami was advanced in retrograde fashion by modified Seldinger technique. At this point, a Tig 4 catheter was advanced over an indwelling J wire. It was evident the patient had a tortuous brachiocephalic orientation with significant angulation of the catheter; however, that straightened out with a wire. The Tig 4 catheter was then placed in left ventricular cavity. Left ventricular end-diastolic pressure measurement was obtained. Pullback revealed no aortic stenosis. Ventriculography was deferred and the patient will be assessed today with an echocardiogram. At this point, the catheter was engaged into the left main coronary artery. This was imaged in multiplane. This was a large vessel that was free of disease. It was short in its course and bifurcated into LAD, circumflex. Circumflex coronary artery was a large vessel that gave rise to several marginal branches and ongoing circ with a distal PDA and PLVB. The first obtuse marginal was tiny. The second obtuse marginal was a large vessel that was branching. The superior branch had a tandem 80% stenotic lesions. The ongoing circ gave rise to a third obtuse marginal and PDA, PLVB system, which was remarkable for diffuse disease involving both of those vessels with 80-90% stenosis and small caliber segments. The LAD was a moderately sized vessel that gave rise to several diagonals and septal perforators. The LAD had an ostial hazy 80% lesion that extended into the proximal segment. The first diagonal was small and diffusely diseased with 80-90% stenosis. Just distal to the diagonal, there was another 80-90% stenotic lesion. The distal LAD system had mild luminal irregularities. At this point, the catheter was withdrawn and engaged in the right coronary artery, which was imaged in multiplane. This was a small nondominant vessel that gave rise to an acute marginal branch. The acute marginal branch had tandem 80% stenotic lesions; however, that was a small vessel. Given the marked abnormalities on the Lexiscan and the markedly elevated coronary calcium score and the abnormal coronary CTA, the decision was to proceed with angioplasty and stenting of the LAD and the obtuse marginal 1. XB 3.5 guide was selected to engage the ostium of the left main. Cannulation of the LAD was difficult because of the short left main and the orientation of all the catheter towards the circumflex; however, we were able to reshape the wire and advance it into the LAD. A 0.014 wire was placed in the distal LAD. We then proceeded with placement of a 2.75 x 38 Stephane Aldrich stent, which covered the ostium, proximal, and mid LAD tandem lesions. It was inflated to 16 atmospheres at 2.95 mm size with good angiographic results. At this point, the wire was redirected and engaged into to obtuse marginal 2 superior branch and this was dilated and stented with a 2.25 x 26 Stephane Aldrich stent and postdilated with a 2.25 NC balloon to 20 atmospheres at 2.36 mm size with good final angiographic results. At this point, the procedure was completed, the catheter was withdrawn over an indwelling wire. Radial band has been applied after the sheath was removed. The patient tolerated the procedure well and left the cardiac catheterization lab in stable condition. FINAL IMPRESSION: * Severe 3-vessel coronary artery disease. * No aortic stenosis. * Successful balloon angioplasty and stenting of the ostial, proximal, mid LAD tandem lesions with a 2.75 x 38 Stephane Aldrich stent to 16 atmospheres at 2.95 mm size. * Successful balloon angioplasty and stenting of OM2 with a 2.25 x 26 [place] Aldrich stent, postdilated with a 2.25 NC balloon to 20 atmospheres at 2.36 mm size with good angiographic results. PLAN: Medical management. TID: [id number] RECEIPT: [id number]
[2024-08-03] MEDS: cloPIDOgrel 75MG TAB PO SCH (11:14)
[2024-08-03] MEDS ORDERED: INSULIN humuLIN R 100 UNIT/ML 3ML SQ SCH (11:30)
--- NOTE | 2024-08-03 12:45 | NUR ---
vasband off at this time. no bleeding to site. site asymptomatic and dressed with 2x2 and coban.
--- NOTE | 2024-08-04 08:06 | HMCSR ---
APPROVED REPORT EXAM: Two-dimensional and M-mode echocardiogram with Doppler and color Doppler. INDICATION ICD: Assess LV Function 2D Dimensions RVDd4.7 cmLVEF(%)55.0 (>50%)LA ESV INDEX (4CH)27.90 mL/m2 IVSd1.0 (0.7-1.1cm)FS(%)26 %LA ESV INDEX (2CH)31.60 mL/m2 LVDd4.6 (3.8-5.6cm)LA (2D)4.0 (1.6-4.0cm) PWd1.0 (0.7-1.1cm)Ao Root(2D)3.4 (2.0-3.7cm) IVSs1.1 cmLVOT diam2.3 (1.8-2.4cm) LVDs3.4 (2.5-4.0cm) PWs1.7 cm M-Mode Dimensions EPSS1.4 cm LA (MM)4.8 (1.6-4.0cm) Ao Root(MM)3.3 (2.0-3.7cm) Aortic Valve AoV VTI0.2 mAo Mean GR2.0 mmHgLVOT VTI0.16 m Mitral Valve MV E Vmax78.0 cm/sDECEL Obtr545 ms MV A Fkxp325.6 cm/sP 1/2 T85 ms E/A ratio0.7MVA (PHT)2.6 cm2 TDI E/E' Nyuetn04.3E/E' Qluafsg90.7 Medial E' Peak V3.50 cm/sLateral E' Peak V4.40 cm/s Pulmonary Valve PV VTI0.20 mPV Mean GR2 mmHg Tricuspid Valve RAP (EST) 3 mmHgRVSP3.0 mmHg Left Ventricle The left ventricle is normal size. There is normal LV segmental wall motion. There is moderate to sev ere concentric left ventricular hypertrophy. LVEF is 60-65%. No left ventricle thrombus noted on this study. Stage I diastolic dysfunction. Right Ventricle The right ventricle is normal size. The right ventricular systolic function is normal. Atria The left atrium size is normal. The right atrium size is normal. Aortic Valve The aortic valve is trileaflet mildly thickened but opens well. No aortic regurgitation is present. T here is no aortic valvular stenosis. Mitral Valve Mitral valve leaflets open well. Mild posterior annular calcification noted. There is no mitral valve regurgitation noted. There is no mitral valve stenosis. Tricuspid Valve The tricuspid valve is normal in structure. There is no tricuspid valve regurgitation noted. Pulmonic Valve The pulmonary valve is normal in structure. There is no pulmonic valvular regurgitation. Great Vessels The aortic root is normal in size. The IVC is normal in size and collapses <50% with inspiration. Pericardium There is no pericardial effusion. Other Information Quality : Technically difficult due to body habitus Conclusion The left ventricle is normal size. There is moderate to severe concentric left ventricular hypertrophy. LVEF is 60-65%. Stage I diastolic dysfunction. The right ventricle is normal size. The left atrium size is normal. The aortic valve is trileaflet mildly thickened but opens well. No aortic regurgitation is present. Mitral valve leaflets open well. Mild posterior annular calcification noted. There is no mitral valve regurgitation noted. There is no mitral valve stenosis. There is no tricuspid valve regurgitation noted. There is no pulmonic valvular regurgitation. The aortic root is normal in size. The IVC is normal in size and collapses <50% with inspiration. There is no pericardial effusion.
== END 2024-08-03 13:04 | disposition home or self-care (01) ==
LOC: DAH 05:44
PROVIDERS: ATTEND Internal Medicine Cardiovascular Disease
DX: I25.118 Atherosclerotic heart disease of native coronary artery with other forms of angina pectoris (principal); R94.39 Abnormal result of other cardiovascular function study; R93.1 Abnormal findings on diagnostic imaging of heart and coronary circulation; I10 Essential (primary) hypertension; E78.5 Hyperlipidemia, unspecified; E11.51 Type 2 diabetes mellitus with diabetic peripheral angiopathy without gangrene; E66.9 Obesity, unspecified; I87.1 Compression of vein; I87.2 Venous insufficiency (chronic) (peripheral); Z89.411 Acquired absence of right great toe; Z98.890 Other specified postprocedural states; Z95.820 Peripheral vascular angioplasty status with implants and grafts; Z95.5 Presence of coronary angioplasty implant and graft; Z68.38 Body mass index [BMI] 38.0-38.9, adult; Z79.84 Long term (current) use of oral hypoglycemic drugs; Z79.01 Long term (current) use of anticoagulants; Z79.82 Long term (current) use of aspirin; Z79.899 Other long term (current) drug therapy
CPT/HCPCS: 80048; 83880; 85025; 85610; 85730; 81001; 36415; 71045; 93005; 85347; 82948; 93306; 93458; C9600 ×2; C1769 ×2; C1874 ×2; A4649; C1894; C1887; C1725; J3490 ×4; J7030; J1644 ×2; J2250 ×2; J2175; Q9967 ×2; A4215; A4222; A4221; A4663; A4216; A4606; A4223 ×3; 96360; 96361; 99156; 99157; C9601

== ENCOUNTER → 2024-09-04 | Outpatient (CLI) | payer MEDICARE ==
--- NOTE | 2024-09-09 21:54 | HMCSR ---
APPROVED REPORT Bilateral Lower Extremity Venous Study for DVT., Venous Competence. Indications i87.1 i87.2 Vein Imaging CFV (R): Normal flow, augmentation and compression. No evidence of DVT. 12.1mm 1006ms of reflux. SFJ (R): Normal flow, augmentation and compression. No evidence of DVT. FEM (R): Normal flow, augmentation and compression. No evidence of DVT. POP (R): Normal flow, augmentation and compression. No evidence of DVT. DFV (R): Normal flow, augmentation and compression. No evidence of DVT. PTV (R): Normal flow, augmentation and compression. No evidence of DVT. Peroneals (R): Normal flow, augmentation and compression. No evidence of DVT. CFV (L): Normal flow, augmentation and compression. No evidence of DVT.12.5mm 1189ms of reflux. SFJ (L): Normal flow, augmentation and compression. No evidence of DVT. FEM (L): Normal flow, augmentation and compression. No evidence of DVT. POP (L): Normal flow, augmentation and compression. No evidence of DVT. DFV (L): Normal flow, augmentation and compression. No evidence of DVT. PTV (L): Normal flow, augmentation and compression. No evidence of DVT. Peroneals (L): Normal flow, augmentation and compression. No evidence of DVT. Technologist Impression Deep veins of bilateral lower extremities appear patent and compressible without thrombus. Deep vein reflux seen in the RCFV and LCFV Prior RGSV and LGSV ablation done 01/2024 Superfical venous insufficiency seen in RGSV Junction and LGSV Junctioin only. RGSV junction 7.3mm 522ms thigh closed knee closed calf closed RSSV Prox 2.0mm 0.0ms Mid Not Seen LGSV junction 5.4mm 961ms thigh closed knee Not seen calf closed SSV Prox 2.8mm 0.0ms Mid 2.9mm 0.0ms Conclusion Deep vein reflux seen in the RCFV and LCFV Prior RGSV and LGSV ablation done 01/2024 Conclusion Deep vein reflux seen in the RCFV and LCFV Prior RGSV and LGSV ablation done 01/2024
--- NOTE | 2024-09-09 21:57 | HMCSR ---
APPROVED REPORT Laterality: Bilateral Indications i87.1 I87.2 VELOCITY AND DOPPLER WAVEFORM ANALYSIS INTERNATIONAL ACCOUNT REPRESENTATIVE (R) 140.8cm/sec, Biphasic, INTERNATIONAL ACCOUNT REPRESENTATIVE (L) 198.3cm/sec, Biphasic, Prof Fem Art. (R) 61.3cm/sec, Biphasic, Prof Fem Art. (L) 141.7cm/sec, Biphasic, Fem Art Prox. (R) 124.2cm/sec, Biphasic, Fem Art Prox. (L) 117.3cm/sec, Biphasic, Fem Art Mid. (R) 58.8cm/sec, Biphasic, Fem Art Mid. (L) 98.4cm/sec, Biphasic, Fem Art Dist (R) 80.3cm/sec, Biphasic, Fem Art Dist. (L) 104.9cm/sec, Biphasic, Pop Art(AK) (R) 76.7cm/sec, Biphasic, Pop Art (AK) (L) 241.7cm/sec, Biphasic, Moderate > 50% Pop Art (Fossa)(R) 62.8cm/sec, Biphasic, Pop Art (Fossa) (L) 57.4cm/sec, Biphasic, Pop Art(BK) (R) 81.6cm/sec, Biphasic, Pop Art (BK) (L) 70.0cm/sec, Biphasic, LIFE SCIENCES TEACHER Dist. (R) 74.2cm/sec, Monophasic, LIFE SCIENCES TEACHER Dist. (L) 41.5cm/sec, Monophasic, Per Art Prox. (R) 0.0cm/sec, Occluded, Per Art Dist. (L) 75.9cm/sec, Monophasic, Per Art Dist. (R) 0.0cm/sec, Occluded, VERONICA Dist. (L) 34.8cm/sec, Monophasic, VERONICA Dist. (R) 66.9cm/sec, Monophasic, Technologist Impression Diffuse atherosclerosis throughout the bilateral lower extremities. RT ZION A. appears occluded prox and distal. LT. POP Prox 241.7 cm/s suggestive of >50% stenosis. Infrapopliteal arterial disease Conclusion Moderate PAD of left popliteal artery Moderate-severe infra-popliteal PAD Conclusion Moderate PAD of left popliteal artery Moderate-severe infra-popliteal PAD
== END | disposition home or self-care (01) ==
LOC: SHCH 13:31
PROVIDERS: ATTEND Internal Medicine Cardiovascular Disease
DX: I87.2 Venous insufficiency (chronic) (peripheral) (principal); I87.1 Compression of vein; I70.203 Unspecified atherosclerosis of native arteries of extremities, bilateral legs
CPT/HCPCS: 93925; 93970

== ENCOUNTER → 2024-09-07 | Outpatient (CLI) | payer MEDICARE ==
[2024-09-07 12:31] LABS: ALBUMIN 3.7 g/dL (3.5-5.0); BILIRUBIN,TOTAL 1.2 mg/dL (0.2-1.0); CREATININE 0.8 mg/dL (0.5-1.3); POTASSIUM 4.5 mmol/L (3.5-5.1)
== END | disposition home or self-care (01) ==
LOC: LAB 09:17
PROVIDERS: ATTEND Nurse Practitioner Acute Care
DX: I10 Essential (primary) hypertension (principal); E78.5 Hyperlipidemia, unspecified; I25.10 Atherosclerotic heart disease of native coronary artery without angina pectoris; I70.90 Unspecified atherosclerosis; I73.9 Peripheral vascular disease, unspecified; I87.2 Venous insufficiency (chronic) (peripheral); Z79.899 Other long term (current) drug therapy
CPT/HCPCS: 36415; 80053; 80061; 82306